=== PATIENT | female | born 1975 | race Caucasian/White ===

== ENCOUNTER 2019-04-04 11:18 | Emergency (ER) | payer OTHER ==
[2019-04-04 13:06] LABS: ABS Eosinophils 0.1 10^3/ul (0-0.6); ABS Lymphocytes 1.7 10^3/ul (1.0-4.8); ABS Monocytes 0.8 10^3/ul (0-0.8); ABS Neutrophils 7.3 10^3/ul (1.5-7.7); Eosinophil % 0.8 %; Hematocrit 36 % (35-47); Hemoglobin 12.4 g/dL (12.0-16.0); Lymphocyte % 16.9 %; Mean Corpuscular HGB Conc 34 g/dL (31-36); Mean Corpuscular Hemoglobin 31 pg (27-31); Mean Corpuscular Volume 90 fL (80-97); Mean Platelet Volume 8.4 fL (7.4-10.4); Platelet Count 228 10^3/uL (150-450); Red Blood Count 4.02 10^6 /uL (3.70-4.87); Red Cell Distribution Width 14 % (10-15); White Blood Count 9.9 10^3/uL (3.5-10.8)
[2019-04-04] MEDS ORDERED: Ondansetron INJ* 2 MG/ML VIAL IV ONE ×2 (13:28→15:43)
[2019-04-04] MEDS ORDERED: Morphine 4 MG/ML VIAL (1 ml) 4 MG/ML VIAL IV ONE (13:28)
[2019-04-04] MEDS ORDERED: NS 0.9% 1000 ML** 1,000 ML IV ONE (13:28)
[2019-04-04 13:32] LABS: ALT 31 U/L (7-52); AST 62 U/L (13-39); Albumin 4.2 g/dL (3.2-5.2); Albumin/Globulin Ratio 1.8 (1-3); Alkaline Phosphatase 62 U/L (34-104); Anion Gap 5 mmol/L (2-11); BUN/Creatinine Ratio 20.5 (8-20); Blood Urea Nitrogen 16 mg/dL (6-24); C Reactive Protein < 1.00 mg/L (<8.01); CO2 Carbon Dioxide 26 mmol/L (22-32); Calcium 9.2 mg/dL (8.6-10.3); Chloride 107 mmol/L (101-111); EGFR African American 96.6 (>60); EGFR Non-African American 79.9 (>60); Globulin 2.3 g/dL (2-4); Glucose 109 mg/dL (70-100); Potassium 3.8 mmol/L (3.5-5.0); Sodium 138 mmol/L (135-145); Total Protein 6.5 g/dL (6.4-8.9)
--- NOTE | 2019-04-04 13:34 | ED ---
Abdominal Pain/Female - HPI Summary HPI Summary: This patient is a 43 year old F w history of gastric sleeve in 2014, presenting [facility] accompanied by her with a chief complaint of severe ABD pain since this morning. Pt states she was at work when the pain developed. The ABD pain is constant, sharp, and radiates to her back. She notes she never had these symptoms before. The patient rates the pain 8/10 in severity. Symptoms aggravated by nothing. Symptoms alleviated by nothing. Patient reports vomiting. Patient denies hematemesis, diarrhea, dysuria, vaginal bleeding, fever , chills. Pt is not on any medications. - History of Current Complaint Chief Complaint: EDAbdPain Stated Complaint: SEVERE ABD PAIN PER PT Time Seen by Provider: 04/04/19 13:14 Hx Obtained From: Patient Onset/Duration: Sudden Onset, Lasting Hours - since this morning, Still Present Timing: Constant Severity Initially: Severe Severity Currently: Severe Pain Intensity: 8 Pain Scale Used: 0-10 Numeric Radiates: Yes Radiates to: Back Character: Sharp Aggravating Factor(s): Nothing Alleviating Factor(s): Nothing Associated Signs and Symptoms: Positive: Vomiting, Other: - negative - hematemesis, dysuria, vaginal bleeding, chills.. Negative: Fever, Diarrhea Allergies/Adverse Reactions: Allergies Allergy/AdvReac Type Severity Reaction Status Date / Time codeine Allergy Nausea Verified 04/04/19 13:19 PMH/Surg Hx/FS Hx/Imm Hx Previously Healthy: No Endocrine/Hematology History: Reports: Hx Anemia - DURING Cardiovascular History: Denies: Other Cardiovascular Problems/Disorders Respiratory History: Reports: Hx Sleep Apnea GI History: Reports: Hx Gastroesophageal Reflux Disease - WELL CONTROLLED Musculoskeletal History: Reports: Hx Scoliosis - HAD SINCE CHILD, WAS BRACED BACK THEN., Other Musculoskeletal History - LEFT PLANTAR FASCIITIS Sensory History: Denies: Hx Contacts or Glasses, Hx Hearing Aid Opthamlomology History: Denies: Hx Contacts or Glasses - Surgical History Surgical History: Yes Infectious Disease History: No Infectious Disease History: Denies: Traveled Outside the [place] in Last 30 Days - Family History Known Family History: Positive: None - Social History Alcohol Use: Occasionally Alcohol Amount: "occasionally" Substance Use Type: Reports: None Smoking Status (MU): Former Smoker Have You Smoked in the Last Year: No Review of Systems Negative: Fever, Chills Gastrointestinal: Other - negative - hematemesis Positive: Abdominal Pain, Vomiting. Negative: Diarrhea Genitourinary: Other - negative - vaginal bleeding Negative: dysuria All Other Systems Reviewed And Are Negative: Yes Physical Exam - Summary Physical Exam Summary: Constitutional: Well-developed, Well-nourished, Alert. Mild distress Skin: Warm, Dry HENT: Normocephalic; Atraumatic Eyes: Conjunctiva normal Neck: Musculoskeletal ROM normal neck. (-) JVD, (-) Stridor, (-) Nuchal rigidity Cardio: Rhythm regular, rate normal, Heart sounds normal; Intact distal pulses; Radial pulses are 2+ and symmetric. (-) Murmur Pulmonary/Chest wall: Effort normal. (-) Respiratory distress, (-) Wheezes, (-) Rales Abd: Soft, Voluntary guarding, epigastric and RUQ tenderness, (-) Distension, (- ) Rebound Musculoskeletal: (-) Edema Lymph: (-) Cervical adenopathy Neuro: Alert, Oriented x3 Psych: Mood and affect Normal Triage Information Reviewed: Yes Vital Signs On Initial Exam: Initial Vitals Temp Pulse Resp BP Pulse Ox 98.0 F 61 18 115/78 100 04/04/19 11:21 04/04/19 11:21 04/04/19 11:21 04/04/19 11:21 04/04/19 11:21 Vital Signs Reviewed: Yes Procedures - Procedure Summary Procedure Summary: Bedside RUQ w sludge, no obvious AAA or dissection flap Diagnostics - Vital Signs Vital Signs Temp Pulse Resp BP Pulse Ox 04/04/19 12:25 98.1 F 68 18 116/74 98 04/04/19 11:21 98.0 F 61 18 115/78 100 - Laboratory Lab Results: Lab Results 04/04/19 Range/Units 12:57 WBC 9.9 (3.5-10.8) 10^3/uL RBC 4.02 (3.70-4.87) 10^6 /uL Hgb 12.4 (12.0-16.0) g/dL Hct 36 (35-47) % MCV 90 (80-97) fL MCH 31 (27-31) pg MCHC 34 (31-36) g/dL RDW 14 (10-15) % Plt Count 228 (150-450) 10^3/uL MPV 8.4 (7.4-10.4) fL Neut % (Auto) 74.0 % Lymph % (Auto) 16.9 % [place] % (Auto) 7.9 % Eos % (Auto) 0.8 % Baso % (Auto) 0.4 % Absolute Neuts (auto) 7.3 (1.5-7.7) 10^3/ul Absolute Lymphs (auto) 1.7 (1.0-4.8) 10^3/ul Absolute Monos (auto) 0.8 (0-0.8) 10^3/ul Absolute Eos (auto) 0.1 (0-0.6) 10^3/ul Absolute Basos (auto) 0.0 (0-0.2) 10^3/ul Absolute Nucleated RBC 0.0 10^3/ul Nucleated RBC % 0.0 Result Diagrams: 04/04/19 12:57 04/04/19 12:57 Lab Statement: Any lab studies that have been ordered have been reviewed, and results considered in the medical decision making process. - Radiology CXR Radiology Interpretation Completed By: ED Physician Summary of Radiographic Findings: Impression: normal - CT Abd/Pel CT Interpretation Completed By: Radiologist Summary of CT Findings: IMPRESSION: 1. 4.2 CM MASS OF THE MIDPOLE OF THE RIGHT KIDNEY. THE IMAGING FEATURES ARE CONCERNING FOR RENAL CELL CARCINOMA. 2. OTHERWISE, NO ACUTE CT PATHOLOGY OF THE VISUALIZED ABDOMEN OR PELVIS. These findings were reviewed by Dr. Hollingsworth. - Ultrasound ABD Ultrasound Interpretation Completed By: Radiologist Summary of Ultrasound Findings: IMPRESSION: 1. ECHOGENIC FOCUS WITHIN THE GALLBLADDER SUGGESTIVE OF A SLUDGE BALL. 2. FINDINGS SUGGESTIVE OF ADENOMYOMATOSIS OF THE GALLBLADDER. 3. MILD EXTRAHEPATIC DUCTAL DISTENTION. 4. 4.1 CM MASS IN THE SUPERIOR POLE OF THE RIGHT KIDNEY. RECOMMEND A MULTIPHASE CT OF THE KIDNEYS WITHOUT AND WITH CONTRAST FOR FURTHER EVALUATION. These findings were reviewed by Dr. Hollingsworth. - EKG 1758 Cardiac Rate: NL - 85 BPM EKG Rhythm: Sinus Rhythm Summary of EKG Findings: 85 BPM, sinus rhythm, nml axis, nml intervals. No STEMI. No acute changes. Re-Evaluation - Re-Evaluation First Eval Re-Evaluation Time: 14:44 Comment: US shows mildly dilated CBD at 0.7 cm Will discuss with GI. Pt has mass on right kidney, will get CT of the abdomen to assess further. She states that morphine improved pain slightly, and fentanyl worked. Second Eval Re-Evaluation Time: 18:24 Comment: After extensive discussion with urology both here and at [facility], as well as GI and hospitalist, plan for PO challenge and likely discharge to home. Dr. Dia (urologist at [facility])does not feel that the patient's pain is related to this mass as it is small without mass effect. Will see her outpatient for workup of renal cell carcinoma. She does not have evidence of gallstones, minimally dilated bile duct without labs suggestive of obstruction. No evidence of acute process on CT to cause pain. At this time the cause of her pain is unclear, but patient can follow up with GI as needed, her surgeon, and urology outpatient Abdominal Pain Fem Course/Dx - Course Course Of Treatment: 43-year-old female the history of gastric sleeve presents with epigastric and right upper quadrant abdominal pain. DDx includes cholecystitis choledocholithiasis, pancreatitis, GERD, renal stone, Less likely SBO, ectopic, PID, ovarian torsion, fibroids. Exam relatively unremarkable today, no rigidity or suggestions of acute surgical abd. Pt with + Salinas's on exam. Will provide IVFs and zofran. Lipase to evaluate for pancreatitis. Will obtain cbc to assess for underlying infection. Serum to r/o ectopic. Less likely ovarian torsion given location of pain and no focal TTP on exam. Pt denies pelvic pain and vaginal discharge, also with no fever, so less likely PID. check right upper quadrant ultrasound, CT abd and pelvis and surgical history and acute abdominal pain. - Diagnoses Provider Diagnoses: Epigastric pain - Provider Notifications Discussed Care Of Patient With: Ahsan Dia MD Time Discussed With Above Provider: 18:10 Instructed by Provider To: Other - Dr. Dia, urology, from [place] says he will call the pt tomorrow for follow up for new mass. He does not feel that she warrants inpatient admission or further workup at this time and does not believe the source of her pain. I discussed this with Dr. Mejia of urology at [facility], who states he's happy to see the patient at his office as well. At 1844, Dr. Alvaardo says he can see her outpatient for follow up. Discharge ED - Sign-Out/Discharge Documenting (check all that apply): Patient Departure - discharge Patient Received Moderate/Deep Sedation with Procedure: No - Discharge Plan Condition: Stable Disposition: HOME Prescriptions: Esomeprazole Magnesium [Nexium 24Hr] 20 mg PO QAM #30 capsule. Patient Education Materials: Acute Abdominal Pain (ED) Referrals: Aj Alvarado MD [Medical Doctor] - 1 Day Shad Layne MD [Medical Doctor] - 1 Day Lea Ward ASSISTANT PURCHASING MANAGER [Primary Care Provider] - 2 Days Cristóbal Mejia MD [Medical Doctor] - 1 Day Additional Instructions: You were seen in the emergency department for pain. Your ultrasound showed sludge in her gallbladder, it does not appear to be obstructing or causing your problems at this time. It also showed a mass in your kidney, a CT showed a 4 cm mass on your right kidney, concerning for renal cell carcinoma. Please follow up with Dr. Beasley, urologist at [facility]. He should you call tomorrow. If she would like to also follow our urologist, Dr. Mejia. He can follow-up with Dr. Alvarado your general surgeon. He can also follow up with Dr. Layne, a petroleum refining firer. Please take Nexium If any studies were not completed at the time of discharge you will be called with the relevant results. Please follow up with your primary care doctor in next 2-3 days and return to emergency department for worsening or concerning symptoms. It was a pleasure taking care of you today. - Billing Disposition and Condition Condition: STABLE Disposition: Home - Attestation Statements Document Initiated by Gallito: Yes Documenting Scribe: Sergo Palma Provider For Whom Gallito is Documenting (Include Credential): Dr. Nargis Hollingsworth MD Scribe Attestation: I, Sergo Palma, scribed for Dr. Nargis Hollingsworth MD on 04/06/19 at 0607. Scribe Documentation Reviewed: Yes Provider Attestation: The documentation as recorded by the Sergo calix accurately reflects the service I personally performed and the decisions made by me, Dr. Nargis Hollingsworth MD Status of Scribe Document: Viewed
[2019-04-04 13:38] LABS: HCG Pregnancy 0.72 mIU/mL
[2019-04-04] MEDS ORDERED: fentaNYL* 50 MCG/ML 2 ML VIAL (100 MCG VIAL) IV SLOW PU ONE (13:58)
[2019-04-04] MEDS ORDERED: HYDROmorphone INJ1* 1 MG/ML SYRINGE IV SLOW PU ONE (14:49)
[2019-04-04] MEDS ORDERED: Iohexol 300* (CONTRAST) 10 ML SDV IV ONE (14:59)
[2019-04-04 17:26] LABS: Urine Appearance Clear; Urine Bilirubin Negative (Negative); Urine Blood Negative (Negative); Urine Color Yellow; Urine Glucose Negative (Negative); Urine Ketones Trace (Negative); Urine Nitrite Negative (Negative); Urine Protein Negative (Negative); Urine Urobilinogen Negative (Negative)
[2019-04-04 19:08] VITALS: BP 116/71
== END 2019-04-04 19:06 | disposition home or self-care (01) ==
LOC: ED 11:18
DX: R10.13 Epigastric pain (principal); N28.9 Disorder of kidney and ureter, unspecified; K21.9 Gastro-esophageal reflux disease without esophagitis; Z87.891 Personal history of nicotine dependence; Z79.899 Other long term (current) drug therapy; Z88.5 Allergy status to narcotic agent; Z98.84 Bariatric surgery status
CPT/HCPCS: 36415; 71046; 74178; 76705; 80053; 81003; 83605; 83690; 84702; 85025; 86140; 93005; 96361; 96374; 96375; 96376; 99283; J1170; J2270; J2405; J3010; Q9967